=== PATIENT | female | born 1975 | race Caucasian/White ===

== ENCOUNTER 2016-11-05 15:38 | Emergency (ER) | payer OTHER ==
[~2016-11-05] VITALS: Ht 154.9 cm; Wt 63.0 kg
[2016-11-05] MEDS ORDERED: PANT40TA2 PO (16:01)
[2016-11-05] MEDS ORDERED: PROBCAP4 PO (16:01)
[2016-11-05] MEDS ORDERED: LINZ145C PO (16:01)
[2016-11-05] MEDS ORDERED: PENT500C PO (16:01)
[2016-11-05] MEDS ORDERED: ALLE24TA8 PO (16:01)
[2016-11-05] MEDS ORDERED: KETOROLAC 30 MG/ML VIAL (J1885) IV ONE (16:30)
[2016-11-05] MEDS ORDERED: NS 1,000 ML IV ONE (16:30)
[2016-11-05] MEDS ORDERED: ONDANSETRON 4MG/2ML VIAL (J2405) IV ONE (16:30)
[2016-11-05 16:34] LABS: BASO % 0.2 % (0.0-1.0); EOS # 0.1 K/mm3 (0.0-0.50); EOS % 1.2 % (0.0-3.0); LARGE UNSTAINED CELL % 0.6 % (0.0-4.0); LYMPH # 0.9 K/mm3 (1.5-4.5); LYMPH % 12.2 % (24.0-44.0); MEAN CORPUSCULAR HGB CONC 33.2 g/dl (32.0-36.5); MEAN CORPUSCULAR VOLUME 87.4 fl (80.0-96.0); MONO # 0.2 K/mm3 (0.0-0.8); MONO % 3.2 % (0.0-5.0); NEUTROPHILS # 5.9 K/mm3 (1.8-7.7); NEUTROPHILS % 82.5 % (36.0-66.0); PLATELET COUNT, AUTOMATED 284 k/mm3 (150-450); RED CELL DISTRIBUTION WIDTH 13.4 % (11.5-14.5); WHITE BLOOD COUNT 7.2 K/mm3 (4.0-10.0)
[2016-11-05 16:48] LABS: CONTROL LINE HCG INT CTR LINE PRESENT
[2016-11-05 16:54] LABS: ALBUMIN 4.1 GM/DL (3.2-5.2); ALBUMIN/GLOBULIN RATIO 1.08 (1.00-1.93); ALKALINE PHOSPHATASE 91 U/L (45-117); ALT/SGPT 26 U/L (12-78); ANION GAP 8 MEQ/L (8-16); AST/SGOT 23 U/L (15-37); BILIRUBIN,DIRECT < 0.1 MG/DL (0.0-0.2); BILIRUBIN,TOTAL 0.4 MG/DL (0.2-1.0); BLOOD UREA NITROGEN 10 MG/DL (7-18); CARBON DIOXIDE LEVEL 28 MEQ/L (21-32); CHLORIDE LEVEL 104 MEQ/L (98-107); CREATININE FOR GFR 0.61 MG/DL (0.55-1.02); GLOMERULAR FILTRATION RATE > 60.0 (>58); GLUCOSE, FASTING 91 MG/DL (70-105); POTASSIUM SERUM 3.8 MEQ/L (3.5-5.1); SODIUM LEVEL 140 MEQ/L (136-145); TOTAL PROTEIN 7.9 GM/DL (6.4-8.2)
[2016-11-05] MEDS ORDERED: ISOVUE-370 76% 100ML VIAL (Q9967) As Ordered ONE (17:53)
[2016-11-05] MEDS ORDERED: HYDROmorphone HCL 1 MG/ML SYRINGE (J1170) IV ONE (18:00)
--- NOTE | 2016-11-05 18:24 | REP ---
Clinical: Epigastric pain. Technique: Axial contrast enhanced images from the lung bases to the pubic symphysis using 100 ml Isovue 370 intravenous contrast material with coronal and sagittal re-formations. Comparison: None. Findings: Surgical suture material in the right upper quadrant suggests prior bowel resection. Fluid-filled loops of small and large bowel are identified along with inflammatory changes in the right mid to lower abdomen and right lower quadrant adenopathy. There is no evidence for bowel obstruction or free air, and no free fluid or drainable collection/abscess. Findings suggest element of enterocolitis and possible mesenteric adenitis. Liver, spleen, pancreas, bilateral adrenal glands and kidneys are normal. The patient is status post cholecystectomy. The enteric system is scrubbed above. Pelvis demonstrates normal bladder and age-appropriate uterus/adnexa with IUD in satisfactory position. No ascites. No free air. No retroperitoneal adenopathy. Abdominal aorta and vasculature appears normal musculoskeletal structures are intact. Impression: Evidence for presumed partial bowel resection with surgical sutures in the right mid/upper abdomen along with fluid-filled bowel and right lower quadrant adenopathy. Findings suggest element of enterocolitis and mesenteric adenitis. No evidence for bowel obstruction or perforation and no free fluid or abscess formation. Signed by Dereje Schmid MD 11/05/2016 06:15 P
[2016-11-05] MEDS ORDERED: NORCOTAB PO (19:28)
[2016-11-05] MEDS ORDERED: ZOFR4TAB3 PO (19:28)
[2016-11-05 19:37] VITALS: BP 110/61
== END 2016-11-05 19:38 | disposition home or self-care (01) ==
LOC: M ED 17:23
DX: A08.4 Viral intestinal infection, unspecified (principal); R11.10 Vomiting, unspecified; K50.90 Crohn's disease, unspecified, without complications; D64.9 Anemia, unspecified; Z90.49 Acquired absence of other specified parts of digestive tract; Z79.899 Other long term (current) drug therapy; Z88.1 Allergy status to other antibiotic agents; Z88.2 Allergy status to sulfonamides; Z91.040 Latex allergy status; Z91.011 Allergy to milk products
CPT/HCPCS: 36415; 74177; 80048; 80076; 83605; 83690; 84703; 85025; 96374; 96375; 99283; J1170; J1885; J2405; Q9967